=== PATIENT | female | born 1995 | race Caucasian/White ===

== ENCOUNTER → 2021-06-07 | Outpatient (CLI) | payer OTHER | LOC: KOH-I 08:32 | DX: R07.9 Chest pain, unspecified (principal); R91.1 Solitary pulmonary nodule | CPT/HCPCS: 71046 ==

== ENCOUNTER → 2021-08-11 | Outpatient (CLI) | payer OTHER | LOC: KOH-I 13:52 | DX: R93.89 Abnormal findings on diagnostic imaging of other specified body structures (principal) | CPT/HCPCS: 71046 ==

== ENCOUNTER 2021-11-16 14:21 | Inpatient (IN) | payer OTHER ==
[~2021-11-16] VITALS: Ht 170.2 cm; Wt 51.7 kg
[2021-11-16 14:59] LABS: HEMOGLOBIN 15.6 gm/dl (12.3-15.3); RED BLOOD COUNT 4.87 M/UL (4.00-5.10); WHITE BLOOD COUNT 9.8 K/UL (4.5-11.0)
[2021-11-16 15:28] LABS: BUN/CREATININE RATIO 15 (0-10)
[2021-11-16] MEDS ORDERED: CHLORTHALIDONE25 MG PO (17:34)
[2021-11-16] MEDS ORDERED: POTASSIUM CHLO20 ME1 PO (17:35)
[2021-11-17 03:22] LABS: HEMOGLOBIN 14.8 gm/dl (12.3-15.3); RED BLOOD COUNT 4.63 M/UL (4.00-5.10); WHITE BLOOD COUNT 10.1 K/UL (4.5-11.0)
[2021-11-17 03:47] LABS: BUN/CREATININE RATIO 14 (0-10)
[2021-11-18 03:02] LABS: BUN/CREATININE RATIO 9 (0-10)
--- NOTE | 2021-11-18 08:55 | NUR ---
PER PULDelfin TOSCANO REQUEST. PT CHEST TUBE SUCTION TURNED OFF AND CLAMPED. PT AMBULATED UNIT WITH RN. PT MADE 3 LAPS AROUND UNIT. NO SOA NOTED. PT SHOWED NO SS OF DISTRESS. PT TALKATIVE.PT RETURNED TO ROOM AND WILL FOLLOW UP IN 1 HOUR. IF NOT LEAKAGE STILL FROM CHEST VIA [employer], RN WILL REMOVED CHEST TUBE.
[2021-11-19] MEDS ORDERED: LISINOPRIL5 MG PO (17:25)
[2021-11-19] MEDS ORDERED: NICOTINE PATCH1 EAC2 TD (17:25)
== END 2021-11-19 18:10 | disposition home or self-care (01) | DRG 200 ==
LOC: ER1 14:21 → CDU 16:50 → PROG CARE 16:50
PROVIDERS: Physician Assistant; Physician Assistant Medical; ADMIT Internal Medicine
PROC: 0W9930Z Drainage of Right Pleural Cavity with Drainage Device, Percutaneous Approach (ICD-10-PCS; principal; 2021-11-16)
DX: J93.83 Other pneumothorax (principal); Z68.1 Body mass index [BMI] 19.9 or less, adult; E03.9 Hypothyroidism, unspecified; I10 Essential (primary) hypertension; E87.6 Hypokalemia; R63.6 Underweight; F17.210 Nicotine dependence, cigarettes, uncomplicated; Z88.2 Allergy status to sulfonamides; Z88.0 Allergy status to penicillin; Z79.899 Other long term (current) drug therapy; Z71.6 Tobacco abuse counseling
CPT/HCPCS: 32551; 36415; 71045; 71046; 71250; 80048; 80053; 81001; 82550; 82553; 83605; 83735; 84132; 84484; 84702; 85025; 85027; 93005; 96374; 99285; J2270; J2405

== ENCOUNTER → 2021-12-26 | Outpatient (CLI) | payer OTHER ==
[~2021-12-26] MED LIST: CHLORTHALIDONE25 MG PO; LISINOPRIL5 MG PO; NICOTINE PATCH1 EAC2 TD; POTASSIUM CHLO20 ME1 PO
== END ==
LOC: HEART 5 14:21
DX: R06.02 Shortness of breath (principal)
CPT/HCPCS: 71046; 94060; 94729